=== PATIENT | female | born 1955 | race Caucasian/White ===

== ENCOUNTER 2019-07-31 19:39 | Emergency (ER) | payer OTHER | END 2019-07-31 20:05 | LOC: NAV ERS 19:39 | DX: R10.2 Pelvic and perineal pain (principal); Z02.89 Encounter for other administrative examinations; E03.9 Hypothyroidism, unspecified; F32.9 Major depressive disorder, single episode, unspecified; F43.10 Post-traumatic stress disorder, unspecified; Z79.899 Other long term (current) drug therapy | CPT/HCPCS: 99283 ==

== ENCOUNTER 2019-10-19 10:32 | Emergency (ER) | payer OTHER, SELFPAY ==
--- NOTE | 2019-10-19 11:28 | CT ---
CT Brain WO Con: 10/19/2019 11:06 AM CLINICAL HISTORY: History of fall with head injury. IMAGING TECHNIQUE: Multiple CT images were obtained of the brain without IV contrast. COMPARISON: None. FINDINGS: Brain: No acute infarct or hemorrhage is evident. No midline shift. Ventricles: Normal. No hydrocephalus. Skull: Intact. Visualized Paranasal sinuses: There is mild mucosal thickening within the right maxillary sinus. No a ir-fluid level is evident. The remaining paranasal sinuses are clear. Mastoid air cells:Clear. Extracranial soft tissues:Normal. IMPRESSION: No acute intracranial abnormality.
--- NOTE | 2019-10-19 11:43 | RAD ---
RIGHT FOOT 3 VIEWS: HISTORY: Foot pain with bruising laterally. FINDINGS: There is lucency through the base of the 5th metacarpal. It is difficult to show that it extends thr ough the cortex, but this appears to represent a nondisplaced fracture in this region. Lisfranc join t appears intact. No other acute injury. Arthritic changes of the 1st metatarsophalangeal joint are seen. IMPRESSION: Nondisplaced Vickers-type fracture of the base of the 5th metatarsal. POS: KIZZY
--- NOTE | 2019-10-19 11:49 | CT ---
CT Cervical Spine WO Con Indication: Fall with neck injury COMPARISON: None. FINDINGS: Motion artifact limits image detail Fracture: No definite acute fracture within the limitations of the exam. Spinal alignment: No acute malalignment. Craniocervical junction: Within normal limits. Vertebral body heights: Maintained. Cervical spine degenerative change: There is mild spondylosis cervical spine most pronounced at C5-C6 . Lung apices: Clear. IMPRESSION: No acute osseous abnormality.
[2019-10-19] MEDS ORDERED: traMADol HCl 50 MG TAB ONE (13:14)
== END 2019-10-19 14:00 | disposition home or self-care (01) ==
LOC: NAV ERS 10:32
DX: S92.354A Nondisplaced fracture of fifth metatarsal bone, right foot, initial encounter for closed fracture (principal); M54.2 Cervicalgia; G89.29 Other chronic pain; E03.9 Hypothyroidism, unspecified; F32.9 Major depressive disorder, single episode, unspecified; F43.10 Post-traumatic stress disorder, unspecified; Z87.891 Personal history of nicotine dependence; W18.30XA Fall on same level, unspecified, initial encounter
CPT/HCPCS: 70450; 72125

== ENCOUNTER 2021-04-12 11:20 | Outpatient (CLI) | payer OTHER | END 2021-04-12 11:21 | disposition home or self-care (01) | LOC: NAV RAD 11:20 | PROVIDERS: ATTEND Family Medicine | DX: M54.50 Low back pain, unspecified (principal); M47.816 Spondylosis without myelopathy or radiculopathy, lumbar region | CPT/HCPCS: 72110 ==

== ENCOUNTER 2021-11-09 10:54 | Outpatient (CLI) | payer OTHER | END 2021-11-09 10:55 | disposition home or self-care (01) | LOC: NAV RAD 10:54 | PROVIDERS: ATTEND Family Medicine | DX: S32.018D Other fracture of first lumbar vertebra, subsequent encounter for fracture with routine healing (principal); M79.671 Pain in right foot; M47.816 Spondylosis without myelopathy or radiculopathy, lumbar region | CPT/HCPCS: 72100 ==

== ENCOUNTER 2023-02-23 14:45 | Emergency (ER) | payer OTHER, SELFPAY ==
[2023-02-23] MEDS ORDERED: Ibuprofen 200 MG TAB ONE (15:13)
== END 2023-02-23 15:55 | disposition home or self-care (01) ==
LOC: NAV ERS 14:45
DX: S89.191A Other physeal fracture of lower end of right tibia, initial encounter for closed fracture (principal); Z87.891 Personal history of nicotine dependence; X58.XXXA Exposure to other specified factors, initial encounter